=== PATIENT | female | born 1975 | race African-American/Black ===

== ENCOUNTER 2022-04-26 09:26 | Emergency (ER) | payer MEDICAID ==
[~2022-04-26] VITALS: Ht 167.6 cm; Wt 75.0 kg
[2022-04-26] MEDS ORDERED: KETOROLAC 30MG/ML VIAL IM ONE (11:30)
[2022-04-26] MEDS ORDERED: CYCL10TA21 MT (11:36)
[2022-04-26 11:45] VITALS: BP 151/95
== END 2022-04-26 12:04 | disposition home or self-care (01) ==
LOC: ER 09:26
DX: S09.8XXA Other specified injuries of head, initial encounter (principal); S80.02XA Contusion of left knee, initial encounter; U07.1 COVID-19; S60.212A Contusion of left wrist, initial encounter; V49.49XA Driver injured in collision with other motor vehicles in traffic accident, initial encounter; R03.0 Elevated blood-pressure reading, without diagnosis of hypertension; Y93.89 Activity, other specified; Y92.488 Other paved roadways as the place of occurrence of the external cause
CPT/HCPCS: 81025; 87426; 96372; 99283; C9803; J1885